=== PATIENT | male | born 1945 | race Caucasian/White ===

== ENCOUNTER 2017-03-03 13:09 | Emergency (ER) | payer OTHER, MEDICAID ==
[~2017-03-03] VITALS: Ht 162.6 cm; Wt 77.1 kg
[2017-03-03] MEDS ORDERED: DIPHENHYDRAMINE INJ 50 MG/ML VIAL IM ONE (13:30)
[2017-03-03] MEDS ORDERED: MORPHINE SULFATE 10 MG/ML VIAL IM ONE (13:30)
[2017-03-03 13:32] VITALS: BP_SYST 90
--- NOTE | 2017-03-03 13:33 | NUR ---
Patient triaged and placed in waiting room. VSS and patient appears in no acute distress at this time. Accompanied by , awaiting available bed, and MD notified of need for MSE.
[2017-03-03 13:52] LABS: BASOPHILS # (AUTO) 0.1 K/uL (0.0-0.2); BASOPHILS % (AUTO) 1.5 % (0.0-2.0); EOSINOPHILS # (AUTO) 0.1 K/uL (0.0-0.4); EOSINOPHILS % (AUTO) 1.3 % (0.0-4.0); HEMATOCRIT 42.1 % (36-54); LYMPHOCYTES # (AUTO) 2.4 K/uL (1.0-5.5); LYMPHOCYTES % (AUTO) 28.9 % (20.5-51.5); MEAN CORPUSCULAR HEMOGLOBIN 32 pg (27-31); MEAN CORPUSCULAR HGB CONC 33 % (32-36); MEAN CORPUSCULAR VOLUME 97 fL (79.0-98.0); MONOCYTES # (AUTO) 0.9 K/uL (0.0-1.0); MONOCYTES % (AUTO) 11.4 % (1.7-9.3); NEUTROPHILS # (AUTO) 4.7 K/uL (1.8-7.7); NEUTROPHILS % (AUTO) 56.9 % (40.0-70.0); PLATELET COUNT (AUTO) 254 K/uL (130-430); RED BLOOD CELL COUNT(AUTO) 4.33 MIL/uL (4.2-6.2); RED CELL DISTRIBUTION WIDTH 13.5 % (9.0-15.0); WHITE BLOOD COUNT (AUTO) 8.2 K/uL (4.8-10.8)
[2017-03-03 13:57] LABS: ANION GAP 13 (5-15); CALCIUM 9.4 mg/dL (8.4-11.0); CHLORIDE 103 mmol/L (98-107); CREATININE 1.65 mg/dL (0.55-1.30); GLUCOSE 122 mg/dL (70-99); POTASSIUM 4.3 mmol/L (3.5-5.1); SODIUM SERUM 139 mmol/L (136-145); UREA NITROGEN, BLOOD 31 mg/dL (8-21)
[2017-03-03 14:03] LABS: ALANINE AMINOTRANSFERASE 31 U/L (12-78); ASPARTATE AMINOTRANSFERASE 26 U/L (10-37); TOTAL BILIRUBIN 0.6 mg/dL (0.0-1.0)
--- NOTE | 2017-03-03 14:39 | NUR ---
ambulatory to bed8
--- NOTE | 2017-03-03 14:39 | NUR ---
report given to alina EISENBERG
--- NOTE | 2017-03-03 14:55 | NUR ---
PT PRESENTS TO ED WITH RT UPPER LEG. PT REPORTS FALLING DOWN HIS STEPS AT HOME 2 DAYS AGO. PAIN HAS BEEN INCREASING DAILY. PAIN IS NOW 10/10
--- NOTE | 2017-03-03 15:14 | NUR ---
Report given to Rodrick Driver, who will assume care
[2017-03-03] MEDS ORDERED: CANA100T PO (15:33)
[2017-03-03] MEDS ORDERED: OMEG300C3 PO (15:33)
[2017-03-03] MEDS ORDERED: INSU100I20 SQ (15:33)
[2017-03-03] MEDS ORDERED: FURO-150 PO (15:33)
[2017-03-03] MEDS ORDERED: LOSA50TA3 PO (15:33)
[2017-03-03] MEDS ORDERED: INSU10VI5 (15:33)
[2017-03-03] MEDS ORDERED: CROM10DR7 OP (15:33)
[2017-03-03] MEDS ORDERED: OMEP20CA10 PO (15:33)
[2017-03-03] MEDS ORDERED: ASPI-1063 PO (15:33)
[2017-03-03] MEDS ORDERED: ERGO500043 PO (15:33)
[2017-03-03] MEDS ORDERED: GABA-531 PO (15:33)
[2017-03-03] MEDS ORDERED: METO50TA3 PO (15:33)
[2017-03-03] MEDS ORDERED: LIP40 PO (15:33)
[2017-03-03] MEDS ORDERED: DICL75TA5 PO (15:33)
[2017-03-03] MEDS ORDERED: FOLI0.8T2 PO (15:33)
[2017-03-03] MEDS ORDERED: SITA1TAB9 PO (15:33)
--- NOTE | 2017-03-03 15:34 | NUR ---
Medication reconciliation completed with information provided by patient. Any prior medication reconciliation on file was reviewed and corrected.
--- NOTE | 2017-03-03 16:06 | NUR ---
Patient given written and verbal discharge instructions and verbalizes understanding. ER MD discussed with patient the results and treatment provided. Patient in stable condition. ID arm band removed. Rx of tramadol, tylenol given. Patient educated on pain management and to follow up with PMD. Pain Scale 2/10. Opportunity for questions provided and answered.
[2017-03-03 16:07] VITALS: BP_SYST 118
== END 2017-03-03 16:07 | disposition home or self-care (01) ==
LOC: SED 13:09
DX: M25.551 Pain in right hip (principal); E11.9 Type 2 diabetes mellitus without complications; I10 Essential (primary) hypertension; Z95.1 Presence of aortocoronary bypass graft; Z79.899 Other long term (current) drug therapy; W19.XXXA Unspecified fall, initial encounter; Y93.89 Activity, other specified; Y92.89 Other specified places as the place of occurrence of the external cause; Y99.8 Other external cause status
CPT/HCPCS: 36415; 72192; 73502; 73564; 80053; 85025; 96372; 99285; J1200; J2270

== ENCOUNTER 2017-03-08 11:15 | Emergency (ER) | payer OTHER, MEDICAID ==
[~2017-03-08] VITALS: Ht 172.7 cm; Wt 90.7 kg
[2017-03-08 11:15] VITALS: BP_SYST 159
[~2017-03-08 11:15] MED LIST: ASPI-1063 PO; CANA100T PO; CROM10DR7 OP; DICL75TA5 PO; ERGO500043 PO; FOLI0.8T2 PO; FURO-150 PO; GABA-531 PO; INSU100I20 SQ; INSU10VI5; LIP40 PO; LOSA50TA3 PO; METO50TA3 PO; OMEG300C3 PO; OMEP20CA10 PO; SITA1TAB9 PO
[2017-03-08] MEDS ORDERED: ONDANSETRON 4 MG ODT TAB PO ONE (11:45)
[2017-03-08] MEDS ORDERED: fentaNYL CITRATE/PF 100 MCG/2 ML AMP IM ONE (11:45)
[2017-03-08 11:58] VITALS: BP_SYST 124
== END 2017-03-08 11:58 | disposition home or self-care (01) ==
LOC: SED 11:15
DX: M54.41 Lumbago with sciatica, right side (principal); B02.9 Zoster without complications; E11.9 Type 2 diabetes mellitus without complications; I10 Essential (primary) hypertension; Z85.46 Personal history of malignant neoplasm of prostate; Z79.899 Other long term (current) drug therapy
CPT/HCPCS: 96372; 99283; J3010; Q0162